=== PATIENT | female | born 1965 | race Caucasian/White ===

== ENCOUNTER → 2019-07-19 | Outpatient (CLI) | payer OTHER ==
[~2019-07-19] MED LIST: Ibuprofen Ib200 MG PO; LISI5 PO
== END | disposition home or self-care (01) ==
LOC: LAB 09:58 → LAB SHORT 09:58
DX: L57.0 Actinic keratosis (principal)
CPT/HCPCS: 87070; 87077; 87186; 87205; 88305

== ENCOUNTER → 2019-08-15 | Outpatient (CLI) | payer OTHER | END | disposition home or self-care (01) | LOC: LAB SHORT 07:55 → LAB 07:55 | DX: L08.0 Pyoderma (principal) | CPT/HCPCS: 87070; 87205 ==

== ENCOUNTER → 2019-08-28 | Outpatient (CLI) | payer OTHER | END | disposition home or self-care (01) | LOC: LAB 08:35 → LAB SHORT 08:35 | DX: L08.0 Pyoderma (principal) | CPT/HCPCS: 87070 ==

== ENCOUNTER → 2023-09-07 | Outpatient (CLI) | payer OTHER | LOC: LAB 10:00 → LAB SHORT 10:00 | DX: L97.323 Non-pressure chronic ulcer of left ankle with necrosis of muscle (principal) | CPT/HCPCS: 87070; 87075; 87076; 87147; 87185; 87205 ==

== ENCOUNTER 2023-09-16 02:20 | Day surgery (SDC) | payer OTHER | END 2023-09-16 22:59 | disposition home or self-care (01) | LOC: WOUND 02:20 | DX: L97.822 Non-pressure chronic ulcer of other part of left lower leg with fat layer exposed (principal); I87.2 Venous insufficiency (chronic) (peripheral); I73.9 Peripheral vascular disease, unspecified; I10 Essential (primary) hypertension | CPT/HCPCS: A9270; G0463 ==

== ENCOUNTER 2023-09-23 01:12 | Day surgery (SDC) | payer OTHER | END 2023-09-23 23:01 | disposition home or self-care (01) | LOC: WOUND 01:12 | DX: L97.822 Non-pressure chronic ulcer of other part of left lower leg with fat layer exposed (principal); I87.2 Venous insufficiency (chronic) (peripheral); I73.9 Peripheral vascular disease, unspecified; I10 Essential (primary) hypertension | CPT/HCPCS: A9270 ==

== ENCOUNTER 2023-09-27 04:12 | Day surgery (SDC) | payer OTHER | END 2023-09-27 23:13 | disposition home or self-care (01) | LOC: WOUND 04:12 | DX: Z48.00 Encounter for change or removal of nonsurgical wound dressing (principal) | CPT/HCPCS: G0463 ==

== ENCOUNTER 2023-09-30 02:50 | Day surgery (SDC) | payer OTHER | END 2023-09-30 23:01 | disposition home or self-care (01) | LOC: WOUND 02:50 | DX: L97.822 Non-pressure chronic ulcer of other part of left lower leg with fat layer exposed (principal); I87.2 Venous insufficiency (chronic) (peripheral); I73.9 Peripheral vascular disease, unspecified; I10 Essential (primary) hypertension | CPT/HCPCS: A9270; G0463 ==

== ENCOUNTER 2023-10-07 04:30 | Day surgery (SDC) | payer OTHER | END 2023-10-07 23:08 | disposition home or self-care (01) | LOC: WOUND 04:30 | DX: L97.822 Non-pressure chronic ulcer of other part of left lower leg with fat layer exposed (principal); I87.2 Venous insufficiency (chronic) (peripheral); I73.9 Peripheral vascular disease, unspecified; I10 Essential (primary) hypertension | CPT/HCPCS: 87071; 87075; 87077; 87147; 87186; 87205; A9270; G0463 ==

== ENCOUNTER 2023-10-13 05:14 | Day surgery (SDC) | payer OTHER | END 2023-10-13 22:58 | disposition home or self-care (01) | LOC: WOUND 05:14 | DX: L97.822 Non-pressure chronic ulcer of other part of left lower leg with fat layer exposed (principal); I87.2 Venous insufficiency (chronic) (peripheral); I73.9 Peripheral vascular disease, unspecified; I10 Essential (primary) hypertension | CPT/HCPCS: A9270 ==

== ENCOUNTER 2023-10-22 03:00 | Day surgery (SDC) | payer OTHER | END 2023-10-22 23:11 | disposition home or self-care (01) | LOC: WOUND 03:00 | DX: L97.822 Non-pressure chronic ulcer of other part of left lower leg with fat layer exposed (principal); I87.2 Venous insufficiency (chronic) (peripheral); I10 Essential (primary) hypertension; I73.9 Peripheral vascular disease, unspecified ==

== ENCOUNTER 2023-10-29 02:46 | Day surgery (SDC) | payer OTHER | END 2023-10-29 22:52 | disposition home or self-care (01) | LOC: WOUND 02:46 | DX: L97.929 Non-pressure chronic ulcer of unspecified part of left lower leg with unspecified severity (principal); I87.2 Venous insufficiency (chronic) (peripheral); I73.9 Peripheral vascular disease, unspecified; I10 Essential (primary) hypertension ==

== ENCOUNTER 2023-11-05 01:18 | Day surgery (SDC) | payer OTHER | END 2023-11-05 22:55 | disposition home or self-care (01) | LOC: WOUND 01:18 | DX: L97.822 Non-pressure chronic ulcer of other part of left lower leg with fat layer exposed (principal); I87.2 Venous insufficiency (chronic) (peripheral); I73.9 Peripheral vascular disease, unspecified; I10 Essential (primary) hypertension ==

== ENCOUNTER 2023-11-12 03:38 | Day surgery (SDC) | payer OTHER | END 2023-11-13 00:11 | disposition home or self-care (01) | LOC: WOUND 03:38 | DX: L97.829 Non-pressure chronic ulcer of other part of left lower leg with unspecified severity (principal); I87.2 Venous insufficiency (chronic) (peripheral); I73.9 Peripheral vascular disease, unspecified; I10 Essential (primary) hypertension | CPT/HCPCS: G0463 ==